=== PATIENT | female | born 2000 | race Caucasian/White ===

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

== ENCOUNTER → 2021-09-27 | Outpatient (CLI) | payer OTHER, BC ==
[~2021-09-27] MED LIST: AMOX250S5 PO; DEXAINTSOL PO; HYDR15SO8 PO; MISO200T66 PO; TETRACAINESUCKERS MT
--- NOTE | 2021-09-27 16:54 | Diagnostic Imaging Report ---
INDICATION: anatomy survey TECHNIQUE: Multiple real-time grayscale images were obtained over the gravid uterus. COMPARISON: None FINDINGS: The cervix measures 3.8 cm and is closed. Placenta is posteriorly located and there are no features of previa. The amount of amniotic fluid appears visually appropriate. anatomy survey is performed and the following structures are visualized and normal: Four-chamber heart, stomach, umbilical cord insertion, urinary bladder, three-vessel cord, profile, cerebral ventricles, cisterna magna, right ventricular outflow tract, left ventricular outflow tract. The spine is suboptimally evaluated due to positioning. Biometrical measurements are as follows: Biparietal 4.92 cm, age 21 weeks 0 days. Head circumference 18.08 cm, age 20 weeks 4 days. Abdominal circumference 15.14 cm, age 20 weeks 3 days. Femur length 3.17 cm, age 19 weeks 6 days. Sonographic estimate age: 20 weeks 4 days. Sonographic estimated date of delivery: 02/10/2022. Estimated Weight: 338 gm (+/- 49 gm). LMP percentile: 33%. heart rate: 144 beats per minute. number: 1 of 1. IMPRESSION: 1. Single live intrauterine . 2. All the anatomy visualized normal. The spine is suboptimally evaluated due to positioning. Dictated by: Dictated on workstation # [id number]
== END ==
LOC: RAD 15:15
PROVIDERS: ATTEND Nurse Practitioner Women's Health
DX: Z34.02 Encounter for supervision of normal first pregnancy, second trimester (principal); Z3A.20 20 weeks gestation of pregnancy
CPT/HCPCS: 76805

== ENCOUNTER 2022-01-10 11:50 | Inpatient (IN) | payer BC, OTHER ==
[2022-01-10] VITALS (18 sets, daily range): BP systolic 131–172; BP diastolic 72–104
[~2022-01-10] VITALS: Ht 170 cm; Wt 120.7 kg
[~2022-01-10 11:50] MED LIST changes: -BENZ78AE5 TP; -BETAMETHASONE ACE/NA PHOS 6 MG/ML (CELESTONE SOLUSPAN) IM SCH; -DIBU30OI TOP; -DOCU100C37 PO; -FURO40TA4 PO; -IBUP-844 PO; -LABE200T7 PO
[2022-01-10] MEDS: BETAMETHASONE ACE/NA PHOS 6 MG/ML (CELESTONE SOLUSPAN) IM SCH (12:44)
[2022-01-10] MEDS ORDERED: MAGNESIUM 1 GM/100 ML IVPB 100 ML IV ONE (13:15)
[2022-01-10] MEDS ORDERED: CALCIUM GLUC. 10% 4.65 MEQ/10 ML VIAL IV PRN (13:15)
[2022-01-10] MEDS ORDERED: MAGNESIUM 2 GM/50 ML IVPB 50 ML IV ONE ×2 (13:42→13:45)
[2022-01-10] MEDS: D5 LR IV SOLUTION 1,000 ML IV SCH ×2 (14:16→23:30)
[2022-01-10] MEDS: MAGNESIUM SULFATE DRIP 500 ML IV SCH (14:41)
[2022-01-10] MEDS ORDERED: TERBUTALINE INJ 1 MG/ML (BRETHINE) AMP SC PRN (17:15)
[2022-01-10] MEDS: LABETALOL 200 MG (NORMODYNE) TAB PO SCH (18:41)
[2022-01-10] MEDS ORDERED: hydrALAZINE (APESOLINE) 20 MG/ML VIAL IV ONE (19:45)
[2022-01-10] MEDS ORDERED: hydrALAZINE (APESOLINE) 20 MG/ML VIAL ONE (19:47)
[2022-01-10] MEDS ORDERED: LABETALOL 200 MG (NORMODYNE) TAB PO SCH (21:00)
[2022-01-11] VITALS (51 sets, daily range): BP systolic 117–169; BP diastolic 60–111
[2022-01-11] MEDS ORDERED: AMPICILLIN FOR IV USE 2,000 MG in NS (IVPB) 50 ML IV SCH (07:54)
[2022-01-11] MEDS ORDERED: AMPICILLIN 2,000 MG/14.8 ML (IV USE) ONE (07:56)
[2022-01-11] MEDS ORDERED: NS (IVPB) 50 ML ONE (07:57)
[2022-01-11] MEDS ORDERED: OXYTOCIN PRE-MIX DRIP 500 ML IV SCH (08:15)
[2022-01-11] MEDS ORDERED: fentaNYL 2 mcg/ml BUPIVA 0.125 100 ML ONE (08:38)
--- NOTE | 2022-01-11 08:41 | History & Physical-OB ---
OB - Chief Complaint & HPI Date/Time Date of Admission: Date of Admission: Jan 10, 2022 at 11:50 am Date seen by a Provider: Jan 10, 2022 Time Seen by a Provider: 17:00 Chief Complaint/History OB-Reason for Admission/Chief: Induction of Labor Hx : 2 Hx Para: 0 Expected Date of Delivery: February 11, 2022 Gestational Age in Weeks: 35 Gestational Age in Days: 3 Indication for induction: medical complication Other reason for admission: Patient sent from office yesterday for Preeclampsia with severe features. BP in office [id number], 20+lbs weight gain in 2 weeks, +3 pitting edema. Urine protien/creatine ratio was found to be >4. Decision to move into induction made after admission and these results were seen. Admission Nurse Assessment Rev: Yes Allergies and Home Medications Allergies Coded Allergies: No Known Drug Allergies (Unverified , 11/25/17) Patient Home Medication List Home Medication List Reviewed: Yes Amoxicillin (Amoxicillin) 250 Mg/5 Ml Susp, 1 TSP PO BID Prescribed by: HARJINDER COOK on 11/29/17 1352 Dexamethasone (Decadron Intensol Oral Solution (Repackaging)) 1 Mg/1 Ml Xin, 2 TSP PO DAILY PRN for PAIN Prescribed by: HARJINDER COOK on 11/29/17 1352 Hydrocodone/Acetaminophen (Hydrocodon-Acetamin 7.5-325/15 ML) 15 Ml Solution, 2- 3 TSP PO Q4H Prescribed by: HARJINDER COOK on 11/29/17 1352 Misoprostol (Misoprostol) 200 Mcg Tablet, 800 MCG PO ONCE Prescribed by: SANNA BULLARD on 03/05/21 1604 Tetracaine (Tetracaine Suckers) Jose Antonio Ea, 1 EA MT UD PRN for PAIN Prescribed by: HARJINDER COOK on 11/29/17 1352 OB - History Hx of Present Care: Yes Ultrasounds: Normal mid trimester US Obstetrical Complications: Pre-eclampsia Medical Complications: None Delivery History Hx Blood Disorders: Yes (HX LOW IRON) Adverse Rxn to Tranfusion: No (N/A) Patient Past Medical History n/a OB - Admission Exam Physical Exam Vitals: Vital Signs 01/10/22 01/11/22 01/11/22 17:08 06:15 08:15 Temp 37.2 Pulse 84 Resp 16 B/P (MAP) 141/76 (97) Pulse Ox 97 O2 Delivery Room Air HEENT: NCAT Heart: Rhythm Normal Lungs: Clear Abdomen: Gravid Extremities: Normal Reflexes: Normal Cervical Dilatation: Fingertip Effacement: 50% Station: -2 Membranes: Intact Heart Rate: 130's Accelerations: Accelerations Present Decelerations: No Decelerations Short Term Variability: Present Net Developer Software Engineer C Variability: Average (6-25) Contractions on Admission: 6-10 Minutes Apart Intensity: Mild OB - Assessment/Plan/Diagnosis Assessment Assessment: induction of labor Admission Dx 21 yo @ 35.4 weeks Severe Preeclampsia GBS unknown Admission Status: Inpatient Order (span 2 midnights) Reason for Inpatient Admission: IOL at 35 weeks due to PreE Plan Plan: Induction Other Plan Patient started on MgSO4 for seizure prophylaxis and BP control with PO labetalol 200 mg bid. IOL with Misoprostol PO started. Will continue with expectations for vaginal delivery unless obstetric indication for operative should arise. ISAAC CARRILLO DO Jan 11, 2022 8:41 am
[2022-01-11] MEDS: LABETALOL 200 MG (NORMODYNE) TAB PO SCH ×2 (08:55→20:47)
[2022-01-11] MEDS ORDERED: NALOXONE 0.4 MG/ML 1 ML (NARCAN) VIAL IV PRN ×3 (09:30→16:45)
[2022-01-11] MEDS ORDERED: EPIDURAL (fentaNYL 2 MCG/ML BUPIVA 0.125%)100 ML BAG EPI SCH (09:30)
[2022-01-11] MEDS ORDERED: LACTATED RINGERS 1,000 ML IV SCH (09:30)
[2022-01-11] MEDS ORDERED: ONDANSETRON 4 MG/2 ML (SDV) Z0FRAN IV PRN (09:30)
[2022-01-11] MEDS ORDERED: METOCLOPRAMIDE INJ 10 MG/2 ML (REGLAN) IV PRN (09:30)
[2022-01-11] MEDS ORDERED: diphenhydrAMINE 50 MG/ML INJ (BENADRYL) IV PRN (09:30)
[2022-01-11] MEDS: D5 LR IV SOLUTION 1,000 ML IV SCH ×2 (09:59→20:02)
[2022-01-11] MEDS: MAGNESIUM SULFATE DRIP 500 ML IV SCH (10:08)
[2022-01-11] MEDS ORDERED: AMPICILLIN FOR IV USE 1,000 MG in NS (IVPB) 50 ML IV SCH (12:00)
[2022-01-11] MEDS: BETAMETHASONE ACE/NA PHOS 6 MG/ML (CELESTONE SOLUSPAN) IM SCH (13:00)
[2022-01-11] MEDS ORDERED: LIDOCAINE/EPI 2% 1:200,00 (XYLOCAINE) 10 ML VIAL ONE (15:42)
[2022-01-11] MEDS: OXYTOCIN PRE-MIX DRIP 500 ML IV SCH ×2 (16:03→16:34)
[2022-01-11] MEDS ORDERED: DIBUCAINE 1% OINTMENT 30 GM TUBE TOP PRN (16:45)
[2022-01-11] MEDS ORDERED: TETANUS,DIPTH,PERTUSS P/F (BOOSTRIX) 0.5 ML VIAL IM ONE (16:45)
[2022-01-11] MEDS ORDERED: MEASLES,MUMPS,RUBELLA 1 EA INJ SQ ONE (16:45)
[2022-01-11] MEDS ORDERED: WITCH HAZEL(TUCKS) 40 EA JAR TOP PRN (16:45)
[2022-01-11] MEDS ORDERED: BENZOCAINE/MENTHOL (DERMOPLAST) 56 ML CAN TP PRN (16:45)
[2022-01-11] MEDS ORDERED: HYDROcodone/APAP 5 MG/325 MG (LORTAB) TAB PO PRN (16:45)
--- NOTE | 2022-01-11 16:50 | OB Labor & Delivery Record ---
L&D History Date of Service Date of Service: Jan 11, 2022 History Expected Date of Delivery: February 11, 2022 Gestational Age in Weeks: 35 Hx : 2 Hx Para: 0 Complications Events: Pre-Eclampsia Operative Indications (Cesarea: N/A-Vaginal Delivery Intrapartal Events: None L&D Stage1 Stage One Onset of Labor - Date: Jan 11, 2022 Monitors and Tracing Monitor Mode: Internal Heart Rate: 115 Monitor Accelerations: Uniform Monitor Decelerations: Variable Station: -1 Penitentiary Variability: Average (6-10) Short Term Variability: Present Presentation: Vertex Vital Signs VS - Last 72 Hours, by Label 01/10/22 01/10/22 01/10/22 01/10/22 11:55 12:15 12:30 12:55 Temp 36.6 Pulse 70 80 66 61 Resp 20 20 20 20 B/P (MAP) 163/99 (120) 162/93 (116) 169/100 (123) Pulse Ox 98 98 98 97 O2 Delivery Room Air 01/10/22 01/10/22 01/10/22 01/10/22 13:00 14:00 14:15 14:15 Pulse 61 72 83 Resp 20 20 20 B/P (MAP) 172/101 (124) 170/104 (126) Pulse Ox 97 97 01/10/22 01/10/22 01/10/22 01/10/22 14:30 14:30 14:32 14:45 Pulse 71 Resp 20 B/P (MAP) 156/101 (119) Pulse Ox 96 O2 Delivery Room Air 01/10/22 01/10/22 01/10/22 01/10/22 14:45 15:00 15:00 15:15 Pulse 70 81 Resp 20 20 B/P (MAP) 159/89 (112) 154/82 (106) 01/10/22 01/10/22 01/10/22 01/10/22 15:15 16:15 16:15 17:08 Pulse 82 71 71 Resp 20 20 20 B/P (MAP) 157/94 (115) 156/93 (114) 156/93 (114) Pulse Ox 96 O2 Delivery Room Air 01/10/22 01/10/22 01/10/22 01/10/22 17:15 17:15 18:15 18:15 Temp 36.6 Pulse 81 81 81 75 Resp 20 20 20 20 B/P (MAP) 142/88 (106) 142/88 (106) 170/96 (120) 170/96 (120) Pulse Ox 97 98 01/10/22 01/10/22 01/10/22 01/10/22 19:15 19:15 20:15 20:15 Pulse 80 80 84 84 Resp 20 20 18 18 B/P (MAP) 162/99 (120) 162/99 (120) 143/92 (109) 143/92 (109) Pulse Ox 98 01/10/22 01/10/22 01/10/22 01/10/22 21:15 21:15 22:15 22:15 Temp 37.4 37.3 Pulse 85 85 88 88 Resp 18 18 18 18 B/P (MAP) 138/88 (105) 138/88 (105) 159/99 (119) 159/99 (119) Pulse Ox 96 97 01/10/22 01/10/22 01/11/22 01/11/22 23:15 23:15 00:15 00:15 Temp 37.3 Pulse 75 75 80 80 Resp 18 18 18 18 B/P (MAP) 131/72 (91) 131/72 (91) 144/85 (104) 144/85 (104) Pulse Ox 97 01/11/22 01/11/22 01/11/22 01/11/22 01:15 01:15 02:15 02:15 Temp 37.1 37.1 Pulse 84 84 93 93 Resp 18 18 18 18 B/P (MAP) 133/74 (93) 133/74 (93) 136/79 (98) 136/79 (98) 01/11/22 01/11/22 01/11/22 01/11/22 03:15 03:15 04:15 04:15 Temp 37.1 37.1 Pulse 93 93 78 78 Resp 18 18 18 18 B/P (MAP) 133/73 (93) 133/73 (93) 117/60 (79) 117/60 (79) Pulse Ox 97 97 01/11/22 01/11/22 01/11/22 01/11/22 05:15 05:15 06:15 06:15 Temp 37.0 37.2 Pulse 94 94 87 87 Resp 18 18 18 18 B/P (MAP) 134/81 (98) 134/81 (98) 133/76 (95) 133/76 (95) Pulse Ox 97 97 01/11/22 01/11/22 01/11/22 01/11/22 07:15 07:15 08:15 08:15 Pulse 86 86 84 84 Resp 18 18 16 B/P (MAP) 157/94 (115) 157/94 (115) 141/79 (99) 141/76 (97) 01/11/22 01/11/22 01/11/22 01/11/22 09:06 09:11 09:13 09:15 Pulse 100 102 88 84 Resp 20 16 B/P (MAP) 151/111 (124) 169/93 (118) 149/84 (105) 151/86 (107) Pulse Ox 98 98 98 01/11/22 01/11/22 01/11/22 01/11/22 09:16 09:19 09:22 09:26 Pulse 92 87 83 95 B/P (MAP) 151/86 (107) 146/78 (100) 135/77 (96) 141/92 (108) Pulse Ox 98 97 96 99 01/11/22 01/11/22 01/11/22 01/11/22 09:30 09:38 09:44 09:50 Pulse 99 99 81 85 B/P (MAP) 144/96 (112) 147/89 (108) 135/84 (101) 138/80 (99) Pulse Ox 86 81 98 97 01/11/22 01/11/22 01/11/22 01/11/22 09:55 10:15 10:15 10:30 Pulse 78 82 82 82 Resp 18 18 B/P (MAP) 132/72 (92) 131/77 (95) 131/77 (95) 151/77 (101) Pulse Ox 78 98 96 01/11/22 01/11/22 01/11/22 01/11/22 10:45 11:00 11:15 11:15 Temp 36.8 Pulse 76 80 80 81 Resp 18 B/P (MAP) 138/69 (92) 141/73 (95) 123/75 (91) 123/75 (91) Pulse Ox 96 95 98 01/11/22 01/11/22 01/11/22 01/11/22 11:30 11:45 12:00 12:15 Pulse 75 85 86 86 Resp 18 B/P (MAP) 120/67 (84) 129/74 (92) 141/82 (101) 143/86 (105) Pulse Ox 97 97 97 01/11/22 01/11/22 01/11/22 01/11/22 12:15 12:30 12:45 13:00 Temp 37.0 Pulse 86 81 85 88 Resp 18 18 16 18 B/P (MAP) 143/77 (99) 139/81 (100) 133/77 (95) 140/78 (98) Pulse Ox 97 94 93 97 01/11/22 01/11/22 01/11/22 01/11/22 13:15 13:15 13:30 13:45 Temp 36.5 Pulse 93 93 85 89 Resp 18 18 18 18 B/P (MAP) 142/99 (113) 142/99 (113) 150/96 (114) 159/102 (121) Pulse Ox 98 99 99 01/11/22 01/11/22 01/11/22 01/11/22 14:00 14:15 14:15 15:15 Temp 36.7 Pulse 90 89 89 95 Resp 18 16 18 20 B/P (MAP) 156/95 (115) 156/83 (107) 156/83 (107) 155/85 (108) Pulse Ox 98 94 01/11/22 15:15 Temp 37.0 Pulse 95 Resp 20 B/P (MAP) 155/85 (108) Pulse Ox 98 Rupture of Membranes Spontaneous Ruture of Membrane: Yes Amniotic Membrane Rupture Time: 657 Amniotic Membrane Fluid Desc.: Clear Vaginal Bleeding Description: Normal Show Induction/Anesthesia Epidural Cath Placement - Time: 911 Progress/Notes Patient admitted with severe PreE diagnosis yesterday. Misoprostol started PO overnight for cervical ripening along with magnesium infusion. SROM occured this morning at 630 am. Shortly after she was checked and 3-4 cm and started on pitocin augmentation. After this she received an epidural and progressed to complete and 0 station when she began having recurrent variables into the 60s. L&D Stage2 Stage Two Stage II Date: Jan 11, 2022 Monitors and Tracing Monitor Mode: Internal Heart Rate: 115 Monitor Accelerations: Uniform Monitor Decelerations: Prolonged Penitentiary Variability: Average (6-10) Short Term Variability: Present Position: Right Occiput Anterior Presentation: Vertex Signs of Distress by FHT Signs of Distress Despite effective progressive pushing, heart rate tracing had dropped to the 80s without recovery. Progressively fhr continued to drop to the 70s, then 60s, at which point presentation was at +3 station. This is when emergent operative delivery was done due to fhr noted in the 50s. RML was cut, and kiwi vacuum placed on the flexion point, 400 mmHg applied with gentle extension the head was delivered where the vacuum was then released. A body cord was delivered through, and infant was placed on maternal abdomen where cord was clampped and cut. Cord Descript/Complications Cord Vessel Description: 3 Vessels Delivery Type Infant Delivery Method: Low Vacuum Extraction Anterior Shoulder: Left Episiotomy/Perineal Laceration Laceraction(s)/Extensions: Yes Episiotomy Description: Right Mediolateral Location Modifier: Right Degree (describe repair) RML repaired in usual fashion using 3-0 and 2-0 vicryl suture. Condition of Infant Delivery Notes Live male weight 5lbs even. APGARs pending. Condition of Condition of Infant: Living Exam: No Observed Abnormalities Resuscitation Resuscitation: Bag and Mask (+pressure mask) L&D Stage3 Stage Three Stage III Date: Jan 11, 2022 Pictocin Pitocin Administration Comment: 30 mu wide open after delivery of placenta Placenta Delivery Placenta Delivery: Spontaneous Delivery Summary Summary Estimated blood loss (mL): 400 Attending at delivery: Isaac Carrillo DO Condition of Delivery Examined: Cervix Examined, Uterus Explored Post Hemorrhage: No Condition of Mother stable Condition of (s) stable ISAAC CARRILLO DO Jan 11, 2022 16:50
[2022-01-11] MEDS ORDERED: LIDOCAINE/EPI 2% 1:200,00 (XYLOCAINE) 10 ML VIAL INJ ONE (17:30)
[2022-01-11] MEDS: IBUPROFEN 600 MG (MOTRIN) TAB PO SCH (17:45)
[2022-01-11] MEDS: DOCUSATE SODIUM 100 MG (COLACE) CAP PO SCH (20:47)
[2022-01-11] MEDS: CATHETER FLUSH 10 ML SYR IV SCH (21:52)
[2022-01-12] VITALS (24 sets, daily range): BP systolic 128–167; BP diastolic 78–108
[2022-01-12] MEDS: D5 LR IV SOLUTION 1,000 ML IV SCH ×2 (00:17→06:20)
[2022-01-12] MEDS: IBUPROFEN 600 MG (MOTRIN) TAB PO SCH ×4 (00:21→19:43)
[2022-01-12] MEDS: MAGNESIUM SULFATE DRIP 500 ML IV SCH (05:07)
[2022-01-12 05:46] LABS: BASOPHILS % (AUTO) 0 % (0-10); EOSINOPHILS % (AUTO) 0 % (0-10); HEMATOCRIT 31 % (35-52); HEMOGLOBIN 10.2 g/dL (11.5-16.0); LYMPHOCYTES # (AUTO) 1.1 10^3/uL (1.0-4.0); LYMPHOCYTES % (AUTO) 7 % (12-44); MEAN CORPUSCULAR HEMOGLOBIN 30 pg (25-34); MEAN CORPUSCULAR HGB CONC 33 g/dL (32-36); MEAN CORPUSCULAR VOLUME 90 fL (80-99); MEAN PLATELET VOLUME 10.6 fL (9.0-12.2); MONOCYTES # (AUTO) 0.5 10^3/uL (0.0-1.0); MONOCYTES % (AUTO) 3 % (0-12); NEUTROPHILS # (AUTO) 14.8 10^3/uL (1.8-7.8); NEUTROPHILS % (AUTO) 90 % (42-75); PLATELET COUNT 219 10^3/uL (130-400); WHITE BLOOD COUNT 16.5 10^3/uL (4.3-11.0)
[2022-01-12] MEDS: CATHETER FLUSH 10 ML SYR IV SCH (06:00)
--- NOTE | 2022-01-12 08:03 | Anesthesia-Regional Post-Op ---
Regional Patient Condition Mental Status: Alert, Oriented x3 Circulation: Same as Pre-Op Headache: Absent Sensation: Full Recovery Motor Block: Absent Post Op Complications Complications None Follow Up Care/Instructions Patient Instructions None needed. Anesthesia/Patient Condition Patient is doing well, no complaints, stable vital signs, no apparent adverse anesthesia problems. No complications reported per nursing. D/C home per [facility] [place] Criteria: Yes MARNI BLAKELY CRNA Jan 12, 2022 08:03
--- NOTE | 2022-01-12 08:16 | Postpartum Progress Note ---
Note Note Day # 1 Subjective: Patient is without complaints. However would like MgSO4 stopped and catheter out. was transferred after delivery yesterday. Tolerating a clear diet without nausea or vomiting. Normal lochia. Pain is well controlled with oral pain medications. Objective: Physical Exam: General - Alert and oriented, no apparent distress Abdomen - Soft, appropriately tender to palpation, non-distended, fundus firm at umbilicus Extremities - +3 pitting edema, negative Carol's bilaterally Assessment: PPD 1 VAVD Severe PreE - BP labile for now Acute blood loss anemia Plan: Routine care. has been transferred will try to expedite discharge Stop MgSO4 infusion Continue Labetalol 400 mg bid, and starting Lasix 40 mg daily PO D/C mckeon catheter Advance diet to regular Encourage ambulation. Ferrous sulfate supplementation. Plan for discharge tomorrow Vitals - Labs Vital Signs - I&O Vital Signs Date Time Temp Pulse Resp B/P (MAP) Pulse Ox O2 Delivery O2 Flow Rate FiO2 01/12/22 06:00 36.4 95 18 154/100 (118) 99 Room Air 01/12/22 05:00 36.4 96 18 155/104 (121) 100 Room Air 01/12/22 04:00 79 18 141/91 (108) 100 Room Air 01/12/22 03:00 36.3 80 18 140/94 (109) 99 Room Air 01/12/22 02:00 86 18 128/78 (95) 100 Room Air 01/12/22 01:00 36.6 71 18 142/86 (104) 100 Room Air 01/12/22 00:00 36.2 84 18 128/80 (96) 100 Room Air 01/11/22 23:00 36.1 77 18 137/88 (104) 98 Room Air 01/11/22 22:00 36.3 75 18 145/91 (109) 98 Room Air 01/11/22 21:00 36.3 85 18 158/102 (120) 100 Room Air 01/11/22 20:00 36.3 82 18 157/102 (120) 98 Room Air 01/11/22 18:15 83 18 147/86 (106) 01/11/22 18:15 36.8 83 18 147/86 (106) 01/11/22 17:15 37.0 82 20 143/80 (101) 01/11/22 17:15 82 20 143/80 (101) 01/11/22 17:00 90 16 142/72 (95) 01/11/22 16:45 90 20 149/79 (102) 01/11/22 16:30 95 18 161/86 (111) 01/11/22 16:15 97 18 163/94 (117) 01/11/22 16:15 37.0 97 18 163/94 (117) 01/11/22 16:00 37.0 93 22 150/80 (103) 01/11/22 15:15 37.0 95 20 155/85 (108) 98 01/11/22 15:15 95 20 155/85 (108) 01/11/22 14:15 36.7 89 18 156/83 (107) 94 01/11/22 14:15 89 16 156/83 (107) 01/11/22 14:00 90 18 156/95 (115) 98 01/11/22 13:45 89 18 159/102 (121) 99 01/11/22 13:30 85 18 150/96 (114) 99 01/11/22 13:15 93 18 142/99 (113) 01/11/22 13:15 36.5 93 18 142/99 (113) 98 01/11/22 13:00 88 18 140/78 (98) 97 01/11/22 12:45 85 16 133/77 (95) 93 01/11/22 12:30 81 18 139/81 (100) 94 01/11/22 12:15 37.0 86 18 143/77 (99) 97 01/11/22 12:15 86 18 143/86 (105) 01/11/22 12:00 86 141/82 (101) 97 01/11/22 11:45 85 129/74 (92) 97 01/11/22 11:30 75 120/67 (84) 97 01/11/22 11:15 81 18 123/75 (91) 01/11/22 11:15 36.8 80 123/75 (91) 98 01/11/22 11:00 80 141/73 (95) 95 01/11/22 10:45 76 138/69 (92) 96 01/11/22 10:30 82 151/77 (101) 96 01/11/22 10:15 82 18 131/77 (95) 01/11/22 10:15 82 18 131/77 (95) 98 01/11/22 09:55 78 132/72 (92) 78 01/11/22 09:50 85 138/80 (99) 97 01/11/22 09:44 81 135/84 (101) 98 01/11/22 09:38 99 147/89 (108) 81 01/11/22 09:30 99 144/96 (112) 86 01/11/22 09:26 95 141/92 (108) 99 01/11/22 09:22 83 135/77 (96) 96 01/11/22 09:19 87 146/78 (100) 97 01/11/22 09:16 92 151/86 (107) 98 01/11/22 09:15 84 16 151/86 (107) 01/11/22 09:13 88 149/84 (105) 98 01/11/22 09:11 102 169/93 (118) 98 01/11/22 09:06 100 20 151/111 (124) 98 01/11/22 08:15 84 16 141/76 (97) 01/11/22 08:15 84 141/79 (99) I & O 01/12/22 07:00 Intake Total 4050 ml Output Total 4155 ml Balance -105 ml Labs Laboratory Tests 01/12/22 05:28: White Blood Count 16.5H, Red Blood Count 3.43L, Hemoglobin 10.2L, Hematocrit 31L , Mean Corpuscular Volume 90, Mean Corpuscular Hemoglobin 30, Mean Corpuscular Hemoglobin Concent 33, Red Cell Distribution Width 16.0H, Platelet Count 219, Mean Platelet Volume 10.6, Immature Granulocyte % (Auto) 1, Neutrophils (%) (Auto) 90H, Lymphocytes (%) (Auto) 7L, Monocytes (%) (Auto) 3, Eosinophils (%) (Auto) 0, Basophils (%) (Auto) 0, Neutrophils # (Auto) 14.8H, Lymphocytes # (Auto) 1.1, Monocytes # (Auto) 0.5, Eosinophils # (Auto) 0.0, Basophils # (Auto) 0.0, Immature Granulocyte # (Auto) 0.1 ISAAC CARRILLO DO Jan 12, 2022 08:16
--- NOTE | 2022-01-12 08:19 | Discharge Inst-Women's Service ---
Discharge Inst-Women's Serv Depart Medication/Instructions New, Converted or Re-Newed RX: Transmitted to Pharmacy Final Diagnosis PPD 2 VAVD, Severe PreE Problems Reviewed?: Yes Consults/Follow Up Additional Follow Up: Yes Orders/Referrals Dr. Carrillo/Adrianna in 2 weeks for BP check and in 6 weeks Activity Activity: Activity as Tolerated Driving Instructions: No Driving for 1 Week NO SMOKING: NO SMOKING Nothing Inside Vagina: No Douching, No [place], No Tampons Diet Discharge Diet: No Restrictions Symptoms to Report to : Bleeding Excessive, Pain Increased, Fever Over 101 Degrees F, Pain/Pressure in Chest, Vaginal Bleeding Increase, Questions/Concerns, Dizziness/Fainting, Shortness of Breath For Any Problems or Questions: Contact Your Physician ISAAC CARRILLO DO Jan 12, 2022 08:19
[2022-01-12] MEDS ORDERED: DOCU100C37 PO (08:20)
[2022-01-12] MEDS ORDERED: DIBU30OI TOP (08:20)
[2022-01-12] MEDS ORDERED: IBUP-844 PO (08:20)
[2022-01-12] MEDS ORDERED: FURO40TA4 PO (08:20)
[2022-01-12] MEDS ORDERED: BENZ78AE5 TP (08:20)
[2022-01-12] MEDS ORDERED: LABE200T7 PO (08:20)
[2022-01-12] MEDS: DOCUSATE SODIUM 100 MG (COLACE) CAP PO SCH ×2 (08:39→21:00)
[2022-01-12] MEDS: LABETALOL 200 MG (NORMODYNE) TAB PO SCH (08:40)
[2022-01-12] MEDS: PRENATAL VITAMIN 1 EA TAB PO SCH (09:37)
[2022-01-12] MEDS: FERROUS SULF 325 MG (IRON) TAB PO SCH (09:37)
[2022-01-12] MEDS: FUROSEMIDE 40 MG (LASIX) TAB PO SCH (09:37)
[2022-01-12] MEDS ORDERED: LABETALOL 200 MG (NORMODYNE) TAB PO SCH (21:00)
[2022-01-12] MEDS ORDERED: LABETALOL 200 MG (NORMODYNE) TAB PO ONE (21:14)
[2022-01-13] VITALS (10 sets, daily range): BP systolic 130–158; BP diastolic 66–84
[2022-01-13] MEDS ORDERED: LABETALOL 200 MG (NORMODYNE) TAB PO ONE ×2 (00:37→00:45)
[2022-01-13] MEDS: IBUPROFEN 600 MG (MOTRIN) TAB PO SCH ×3 (02:17→12:00)
[2022-01-13] MEDS: FUROSEMIDE 40 MG (LASIX) TAB PO SCH (07:52)
[2022-01-13] MEDS: PRENATAL VITAMIN 1 EA TAB PO SCH (07:52)
[2022-01-13] MEDS: FERROUS SULF 325 MG (IRON) TAB PO SCH (07:52)
[2022-01-13] MEDS: DOCUSATE SODIUM 100 MG (COLACE) CAP PO SCH (08:10)
[2022-01-13] MEDS ORDERED: LABETALOL 200 MG (NORMODYNE) TAB PO SCH (09:00)
[2022-01-13] MEDS ORDERED: LABE200T7 PO (10:07)
--- NOTE | 2022-01-13 10:11 | Postpartum Progress Note ---
Note Note Day # 2 Subjective: Patient is without complaints. Ambulating, voiding. Tolerating a regular diet without nausea or vomiting. Normal lochia. Pain is well controlled with oral pain medications. Passing flatus. Denies ORTIZ, blurry vision, chest pain and SOB. Interested in discharge today in order to see her son at [facility]. Objective: VS - Last 72 Hours, by Label 01/10/22 01/10/22 01/10/22 01/10/22 11:55 12:15 12:30 12:55 Temp 36.6 Pulse 70 80 66 61 Resp 20 20 20 20 B/P (MAP) 163/99 (120) 162/93 (116) 169/100 (123) Pulse Ox 98 98 98 97 O2 Delivery Room Air 01/10/22 01/10/22 01/10/22 01/10/22 13:00 14:00 14:15 14:15 Pulse 61 72 83 Resp 20 20 20 B/P (MAP) 172/101 (124) 170/104 (126) Pulse Ox 97 97 01/10/22 01/10/22 01/10/22 01/10/22 14:30 14:30 14:32 14:45 Pulse 71 Resp 20 B/P (MAP) 156/101 (119) Pulse Ox 96 O2 Delivery Room Air 01/10/22 01/10/22 01/10/22 01/10/22 14:45 15:00 15:00 15:15 Pulse 70 81 Resp 20 20 B/P (MAP) 159/89 (112) 154/82 (106) 01/10/22 01/10/22 01/10/22 01/10/22 15:15 16:15 16:15 17:08 Pulse 82 71 71 Resp 20 20 20 B/P (MAP) 157/94 (115) 156/93 (114) 156/93 (114) Pulse Ox 96 O2 Delivery Room Air 01/10/22 01/10/22 01/10/22 01/10/22 17:15 17:15 18:15 18:15 Temp 36.6 Pulse 81 81 81 75 Resp 20 20 20 20 B/P (MAP) 142/88 (106) 142/88 (106) 170/96 (120) 170/96 (120) Pulse Ox 97 98 01/10/22 01/10/22 01/10/2201/10/22 19:15 19:15 20:15 20:15 Pulse 80 80 84 84 Resp 20 20 18 18 B/P (MAP) 162/99 (120) 162/99 (120) 143/92 (109) 143/92 (109) Pulse Ox 98 01/10/22 01/10/22 01/10/22 01/10/22 21:15 21:15 22:15 22:15 Temp 37.4 37.3 Pulse 85 85 88 88 Resp 18 18 18 18 B/P (MAP) 138/88 (105) 138/88 (105) 159/99 (119) 159/99 (119) Pulse Ox 96 97 01/10/22 01/10/22 01/11/22 01/11/22 23:15 23:15 00:15 00:15 Temp 37.3 Pulse 75 75 80 80 Resp 18 18 18 18 B/P (MAP) 131/72 (91) 131/72 (91) 144/85 (104) 144/85 (104) Pulse Ox 97 01/11/22 01/11/22 01/11/22 01/11/22 01:15 01:15 02:15 02:15 Temp 37.1 37.1 Pulse 84 84 93 93 Resp 18 18 18 18 B/P (MAP) 133/74 (93) 133/74 (93) 136/79 (98) 136/79 (98) 01/11/22 01/11/22 01/11/22 01/11/22 03:15 03:15 04:15 04:15 Temp 37.1 37.1 Pulse 93 93 78 78 Resp 18 18 18 18 B/P (MAP) 133/73 (93) 133/73 (93) 117/60 (79) 117/60 (79) Pulse Ox 97 97 01/11/22 01/11/22 01/11/22 01/11/22 05:15 05:15 06:15 06:15 Temp 37.0 37.2 Pulse 94 94 87 87 Resp 18 18 18 18 B/P (MAP) 134/81 (98) 134/81 (98) 133/76 (95) 133/76 (95) Pulse Ox 97 97 01/11/22 01/11/22 01/11/22 01/11/22 07:15 07:15 08:15 08:15 Pulse 86 86 84 84 Resp 18 18 16 B/P (MAP) 157/94 (115) 157/94 (115) 141/79 (99) 141/76 (97) 01/11/22 01/11/22 01/11/22 01/11/22 09:06 09:11 09:13 09:15 Pulse 100 102 88 84 Resp 20 16 B/P (MAP) 151/111 (124) 169/93 (118) 149/84 (105) 151/86 (107) Pulse Ox 98 98 98 01/11/22 01/11/22 01/11/22 01/11/22 09:16 09:19 09:22 09:26 Pulse 92 87 83 95 B/P (MAP) 151/86 (107) 146/78 (100) 135/77 (96) 141/92 (108) Pulse Ox 98 97 96 99 01/11/22 01/11/22 01/11/22 01/11/22 09:30 09:38 09:44 09:50 Pulse 99 99 81 85 B/P (MAP) 144/96 (112) 147/89 (108) 135/84 (101) 138/80 (99) Pulse Ox 86 81 98 97 01/11/22 01/11/22 01/11/22 01/11/22 09:55 10:15 10:15 10:30 Pulse 78 82 82 82 Resp 18 18 B/P (MAP) 132/72 (92) 131/77 (95) 131/77 (95) 151/77 (101) Pulse Ox 78 98 96 01/11/22 01/11/22 01/11/22 01/11/22 10:45 11:00 11:15 11:15 Temp 36.8 Pulse 76 80 80 81 Resp 18 B/P (MAP) 138/69 (92) 141/73 (95) 123/75 (91) 123/75 (91) Pulse Ox 96 95 98 01/11/22 01/11/22 01/11/22 01/11/22 11:30 11:45 12:00 12:15 Pulse 75 85 86 86 Resp 18 B/P (MAP) 120/67 (84) 129/74 (92) 141/82 (101) 143/86 (105) Pulse Ox 97 97 97 401/11/22 01/11/22 01/11/22 12:15 12:30 12:45 13:00 Temp 37.0 Pulse 86 81 85 88 Resp 18 18 16 18 B/P (MAP) 143/77 (99) 139/81 (100) 133/77 (95) 140/78 (98) Pulse Ox 97 94 93 97 01/11/22 01/11/22 01/11/22 01/11/22 13:15 13:15 13:30 13:45 Temp 36.5 Pulse 93 93 85 89 Resp 18 18 18 18 B/P (MAP) 142/99 (113) 142/99 (113) 150/96 (114) 159/102 (121) Pulse Ox 98 99 99 01/11/22 01/11/22 01/11/22 01/11/22 14:00 14:15 14:15 15:15 Temp 36.7 Pulse 90 89 89 95 Resp 18 16 18 20 B/P (MAP) 156/95 (115) 156/83 (107) 156/83 (107) 155/85 (108) Pulse Ox 98 94 01/11/22 01/11/22 01/11/22 01/11/22 15:15 16:00 16:15 16:15 Temp 37.0 37.0 37.0 Pulse 95 93 97 97 Resp 20 22 18 18 B/P (MAP) 155/85 (108) 150/80 (103) 163/94 (117) 163/94 (117) Pulse Ox 98 01/11/22 01/11/22 01/11/22 01/11/22 16:30 16:45 17:00 17:15 Pulse 95 90 90 82 Resp 18 20 16 20 B/P (MAP) 161/86 (111) 149/79 (102) 142/72 (95) 143/80 (101) 01/11/22 01/11/22 01/11/22 01/11/22 17:15 18:15 18:15 20:00 Temp 37.0 36.8 36.3 Pulse 82 83 83 82 Resp 20 18 18 18 B/P (MAP) 143/80 (101) 147/86 (106) 147/86 (106) 157/102 (120) Pulse Ox 98 O2 Delivery Room Air 01/11/22 01/11/22 01/11/2229/22 21:00 22:00 23:00 00:00 Temp 36.3 36.3 36.1 36.2 Pulse 85 75 77 84 Resp 18 18 18 18 B/P (MAP) 158/102 (120) 145/91 (109) 137/88 (104) 128/80 (96) Pulse Ox 100 98 98 100 O2 Delivery Room Air Room Air Room Air Room Air 01/12/22 01/12/22 01/12/22 01/12/22 01:00 02:00 03:00 04:00 Temp 36.6 36.3 Pulse 71 86 80 79 Resp 18 18 18 18 B/P (MAP) 142/86 (104) 128/78 (95) 140/94 (109) 141/91 (108) Pulse Ox 100 100 99 100 O2 Delivery Room Air Room Air Room Air Room Air 01/12/22 01/12/22 01/12/22 01/12/22 05:00 06:00 07:00 08:00 Temp 36.4 36.4 36.4 Pulse 96 95 86 Resp 18 18 18 16 B/P (MAP) 155/104 (121) 154/100 (118) 143/95 (111) 153/99 (117) Pulse Ox 100 99 99 O2 Delivery Room Air Room Air Room Air Room Air 01/12/22 01/12/22 01/12/22 01/12/22 09:00 10:00 11:07 12:00 Temp 36.4 Pulse 97 Resp 16 B/P (MAP) 150/88 (108) 133/79 (97) 150/95 (113) 137/88 (104) Pulse Ox 97 O2 Delivery Room Air 01/12/22 01/12/22 01/12/22 01/12/22 13:00 14:00 15:00 16:00 B/P (MAP) 160/98 (118) 144/80 (101) 147/88 (107) 142/83 (102) 01/12/22 01/12/22 01/12/22 01/12/22 17:00 17:59 19:45 20:55 Temp 36.4 36.4 Pulse 69 74 Resp 18 18 B/P (MAP) 159/94 (115) 157/102 (120) 145/86 (105) 140/94 (109) Pulse Ox 99 98 O2 Delivery Room Air Room Air 01/12/22 01/12/22 01/12/22 01/12/22 20:55 21:10 22:20 23:20 B/P (MAP) 167/108 (127) 140/94 (109) 147/92 (110) 148/88 (108) 01/13/22 01/13/22 01/13/22 01/13/22 00:20 01:20 02:20 03:15 Temp 36.4 Pulse 80 Resp 18 B/P (MAP) 146/83 (104) 148/84 (105) 135/70 (91) 130/66 (87) Pulse Ox 98 O2 Delivery Room Air 01/13/22 01/13/22 01/13/22 01/13/22 04:20 05:20 06:20 07:50 Temp 36.6 36.9 Pulse 74 85 Resp 16 16 B/P (MAP) 133/72 (92) 130/71 (90) 135/71 (92) 154/80 (104) Pulse Ox 98 98 O2 Delivery Room Air Room Air Physical Exam: General - Alert and oriented, no apparent distress Abdomen - Soft, appropriately tender to palpation, non-distended, fundus firm at umbilicus Extremities - no edema, negative Carol's bilaterally Assessment: Post- day # 2, status post vacuum assisted vaginal deliver due to non- reassuring status. Recovering well, hemodynamically stable Plan: Routine care. h/o PreE with SF: s/p MagSO4 in the period. Labetalol 400mg BID was increased to 600mg BID overnight with adequate control. Will discharge home with 600mg labetalol BID and 40mg of lasix this morning. Patient to follow-up in 1 week for a blood pressure check. Viable male , who was transferred to [facility]. Encourage breast feeding. DVT ppx: Encourage ambulation. Ferrous sulfate supplementation. Plan for discharge home today with plans for close follow-up in office with Dr. Roe. Vitals - Labs Vital Signs - I&O Vital Signs Date Time Temp Pulse Resp B/P (MAP) Pulse Ox O2 Delivery O2 Flow Rate FiO2 01/13/22 07:50 36.9 85 16 154/80 (104) 98 Room Air 01/13/22 06:20 135/71 (92) 01/13/22 05:20 130/71 (90) 01/13/22 04:20 36.6 74 16 133/72 (92) 98 Room Air 01/13/22 03:15 130/66 (87) 01/13/22 02:20 135/70 (91) 01/13/22 01:20 148/84 (105) 01/13/22 00:20 36.4 80 18 146/83 (104) 98 Room Air 01/12/22 23:20 148/88 (108) 01/12/22 22:20 147/92 (110) 01/12/22 21:10 140/94 (109) 01/12/22 20:55 167/108 (127) 01/12/22 20:55 140/94 (109) 01/12/22 19:45 36.4 74 18 145/86 (105) 98 Room Air 01/12/22 17:59 36.4 69 18 157/102 (120) 99 Room Air 01/12/22 17:00 159/94 (115) 01/12/22 16:00 142/83 (102) 01/12/22 15:00 147/88 (107) 01/12/22 14:00 144/80 (101) 01/12/22 13:00 160/98 (118) 01/12/22 12:00 137/88 (104) 01/12/22 11:07 36.4 97 16 150/95 (113) 97 Room Air I & O 01/13/22 07:00 Intake Total 1375 ml Output Total 1925 ml Balance -550 ml KOKO TESFAYE MD Jan 13, 2022 10:11
== END 2022-01-13 12:00 | disposition home or self-care (01) | DRG 806 ==
LOC: LDRP 11:50
PROVIDERS: ADMIT Obstetrics & Gynecology; ATTEND Obstetrics & Gynecology
PROC: 10D07Z6 Extraction of Products of Conception, Vacuum, Via Natural or Artificial Opening (ICD-10-PCS; principal; 2022-01-11)
PROC: 0W8NXZZ Division of Female Perineum, External Approach (ICD-10-PCS; 2022-01-11)
DX: O14.14 Severe pre-eclampsia complicating childbirth (principal); D62 Acute posthemorrhagic anemia; Z37.0 Single live birth; Z3A.35 35 weeks gestation of pregnancy; O60.14X0 Preterm labor third trimester with preterm delivery third trimester, not applicable or unspecified; O90.81 Anemia of the puerperium; O12.05 Gestational edema, complicating the puerperium
CPT/HCPCS: 36415; 85025

== ENCOUNTER → 2022-01-10 | Outpatient (CLI) | payer OTHER, BC ==
[~2022-01-10] MED LIST changes: +BENZ78AE5 TP; +BETAMETHASONE ACE/NA PHOS 6 MG/ML (CELESTONE SOLUSPAN) IM SCH; +DIBU30OI TOP; +DOCU100C37 PO; +FURO40TA4 PO; +IBUP-844 PO; +LABE200T7 PO
[2022-01-10 11:59] LABS: BASOPHILS % (AUTO) 0 % (0-10); EOSINOPHILS # (AUTO) 0.1 10^3/uL (0.0-0.3); EOSINOPHILS % (AUTO) 1 % (0-10); HEMATOCRIT 35 % (35-52); HEMOGLOBIN 11.7 g/dL (11.5-16.0); LYMPHOCYTES # (AUTO) 1.8 10^3/uL (1.0-4.0); LYMPHOCYTES % (AUTO) 16 % (12-44); MEAN CORPUSCULAR HEMOGLOBIN 30 pg (25-34); MEAN CORPUSCULAR HGB CONC 33 g/dL (32-36); MEAN CORPUSCULAR VOLUME 89 fL (80-99); MEAN PLATELET VOLUME 11.2 fL (9.0-12.2); MONOCYTES # (AUTO) 0.7 10^3/uL (0.0-1.0); MONOCYTES % (AUTO) 6 % (0-12); NEUTROPHILS # (AUTO) 8.6 10^3/uL (1.8-7.8); NEUTROPHILS % (AUTO) 76 % (42-75); PLATELET COUNT 232 10^3/uL (130-400); WHITE BLOOD COUNT 11.3 10^3/uL (4.3-11.0)
[2022-01-10 12:20] LABS: ALBUMIN 3.1 GM/DL (3.2-4.5); BILIRUBIN,TOTAL 0.3 MG/DL (0.1-1.0); CALCIUM 8.6 MG/DL (8.5-10.1); CREATININE SERUM 0.75 MG/DL (0.60-1.30); POTASSIUM 4.3 MMOL/L (3.6-5.0); TOTAL PROTEIN 5.7 GM/DL (6.4-8.2); URIC ACID 5.9 MG/DL (2.6-7.2)
== END ==
LOC: LABNPT 11:46
PROVIDERS: ATTEND Nurse Practitioner Women's Health
DX: O13.3 Gestational [pregnancy-induced] hypertension without significant proteinuria, third trimester (principal); Z3A.00 Weeks of gestation of pregnancy not specified
CPT/HCPCS: 80053; 82570; 84156; 84550; 85025; 87081

== ENCOUNTER → 2022-12-13 | Outpatient (CLI) | payer BC, OTHER ==
[~2022-12-13] MED LIST changes: +BENZ78AE5 TP; +DIBU30OI TOP; +DOCU100C37 PO; +FURO40TA4 PO; +IBUP-844 PO; +LABE200T10 PO
--- NOTE | 2022-12-13 14:28 | Diagnostic Imaging Report ---
PROCEDURE: Pelvic comp/transvaginal sonogram. TECHNIQUE: Complete transabdominal and transvaginal pelvic ultrasound was performed. In addition, limited pelvic Doppler was performed. INDICATION: Acute pelvic pain and vaginal spotting. The uterus is anteverted measuring 7.5 x 3.9 x 5.1 cm. The endometrium is 4 mm in thickness. There is an IUD centered in the endometrial canal. No myometrial mass is detected. Right ovary measures 4.6 x 4.3 x 4.8 cm and the left ovary measures 2.8 x 1.4 x 2.4 cm. The right ovary does contain a 4.0 x 3.2 x 4.3 cm cyst. There are some internal echoes and septations consistent with a probable hemorrhagic cyst. There is blood flow to both ovaries. No free fluid is detected. IMPRESSION: 1. The IUD is well centered in the endometrial canal. 2. Complex 4.3 cm right ovarian cyst, likely hemorrhagic. Follow-up in 6-8 weeks could be performed to confirm clearing. Dictated by: Dictated on workstation # [id number]
== END ==
LOC: RAD 11:30
PROVIDERS: ATTEND Obstetrics & Gynecology
DX: R10.2 Pelvic and perineal pain (principal)
CPT/HCPCS: 76830; 76856